=== PATIENT | male | born 1945 | race Caucasian/White ===

== ENCOUNTER 2018-03-27 08:55 | Day surgery (SDC) ==
[2018-03-27] MEDS: BETADINE OPTH PREP OP PRN ×2 (08:45→10:14)
[2018-03-27] MEDS: TETRACAINE 0.5% UNIT-DOSE OP PRN ×2 (09:45→10:14)
[2018-03-27] MEDS ORDERED: BRIMONIDINE TARTRATE 0.2% OPTH SOL OP PRN (09:46)
[2018-03-27] MEDS ORDERED: DEX-MOXI-KETOR OPTH INJ 1/0.5/0.4 MG/ML IO ONE (09:46)
[2018-03-27] MEDS: CYCLOGYL 2% OPTH OP PRN ×3 (09:46→09:56)
[2018-03-27] MEDS ORDERED: LIDOCAINE 1%/PHENYLEPHRINE 1.5% BSS (SURGERY) INTRAOCULA ONE (09:46)
[2018-03-27] MEDS ORDERED: LIDOCAINE 1% 20 ML MDV ID STA (09:46)
[2018-03-27] MEDS ORDERED: ZOFRAN 4 MG/2 ML IVP ONE (09:46)
[2018-03-27] MEDS ORDERED: BSS WITH EPINEPHRINE OP ONE (09:46)
[2018-03-27 09:55] VITALS: TEMP 97.5
[2018-03-27] MEDS ORDERED: ZOFRAN 4 MG/2 ML ONE (10:05)
[2018-03-27] MEDS ORDERED: SUBLIMAZE ONE (10:05)
[2018-03-27] MEDS ORDERED: VERSED ONE (10:05)
[2018-03-27 13:54] VITALS: BP 115/56
== END 2018-03-27 10:45 | disposition home or self-care (01) ==
LOC: SURG 08:55
PROVIDERS: ATTEND Ophthalmology
DX: H25.812 Combined forms of age-related cataract, left eye (principal)

== ENCOUNTER 2018-04-10 09:00 | Day surgery (SDC) | payer OTHER ==
[2018-04-10] MEDS: BETADINE OPTH PREP OP PRN ×2 (10:50→11:18)
[2018-04-10] MEDS: TETRACAINE 0.5% UNIT-DOSE OP PRN ×2 (10:50→11:18)
[2018-04-10] MEDS: CYCLOGYL 2% OPTH OP PRN ×3 (10:51→11:04)
[2018-04-10] MEDS ORDERED: DEX-MOXI-KETOR OPTH INJ 1/0.5/0.4 MG/ML IO ONE (10:57)
[2018-04-10] MEDS ORDERED: LIDOCAINE 1%/PHENYLEPHRINE 1.5% BSS (SURGERY) INTRAOCULA ONE (10:57)
[2018-04-10] MEDS ORDERED: LIDOCAINE 1% 20 ML MDV ID STA (10:57)
[2018-04-10] MEDS ORDERED: BSS WITH EPINEPHRINE OP ONE (10:57)
[2018-04-10] MEDS ORDERED: ZOFRAN 4 MG/2 ML IVP ONE (10:57)
[2018-04-10] MEDS ORDERED: BRIMONIDINE TARTRATE 0.2% OPTH SOL OP PRN (10:57)
[2018-04-10 11:03] VITALS: TEMP 97.8
[2018-04-10] MEDS ORDERED: VERSED ONE (11:07)
[2018-04-10] MEDS ORDERED: ZOFRAN 4 MG/2 ML ONE (11:07)
[2018-04-10] MEDS ORDERED: SUBLIMAZE ONE (11:07)
[2018-04-12 15:21] VITALS: BP 132/78
== END 2018-04-10 12:10 | disposition home or self-care (01) ==
LOC: SURG 09:00
PROVIDERS: ATTEND Ophthalmology
DX: H25.811 Combined forms of age-related cataract, right eye (principal)